=== PATIENT | female | born 1980 | race Asian ===

== ENCOUNTER 2017-07-28 11:13 | Emergency (ER) | payer OTHER ==
[~2017-07-28] VITALS: Ht 154.9 cm; Wt 70.4 kg
[2017-07-28 11:21] VITALS: BP 102/56; Ht 154.9 cm; Wt 70.4 kg
== END 2017-07-28 13:01 | disposition home or self-care (01) ==
LOC: ED 11:13
DX: J45.901 Unspecified asthma with (acute) exacerbation (principal)
CPT/HCPCS: J7512; J7613; J7644